=== PATIENT | female | born 1955 | race Caucasian/White ===

== ENCOUNTER → 2016-11-30 10:35 | Outpatient (CLI) | payer MEDICARE, OTHER ==
[2015-03-15 11:59] VITALS: BMI 41.7
[~2016-11-30 10:35] MED LIST: ADVAIR 100/501 DISK INH; ALDACTONE25 MG PO; AMBIEN10 MG PO; CLARITIN 10 MG10 MG PO; CYCLOBENZAPRINE10 MG PO; FLUTICASONE PRO16 GM NASAL; HCTZ25 MG PO; HYDROCODON-ACE1 EAC7 PO; LOPID600 MG PO; METOPROLOL TAR100 M1 PO; METOPROLOL TART50 MG PO; PSEUDO-GEST60 MG PO; SYNTHROID125 MCG PO
== END | disposition home or self-care (01) ==
LOC: D.MRI 10:35
DX: M54.12 Radiculopathy, cervical region (principal)

== ENCOUNTER 2016-12-25 10:56 | Emergency (ER) | payer MEDICARE, OTHER ==
[2015-03-15 11:59] VITALS: BMI 41.7
[2016-12-25 14:40] LABS: BASOPHILS 0.4 % (0.0-2.0); EOSINOPHILS 1.8 % (0-7); HEMATOCRIT 42.8 % (36.0-48.0); HEMOGLOBIN 14.7 g/dL (12-16); IMMATURE GRANULOCYTES 0.7 % (0-5); LYMPHOCYTES 29.7 % (15-50); MCH 32.4 pg (26.0-34.0); MCHC 34.3 g/dL (31.0-37.0); MCV 94.3 fL (80.0-100.0); MEAN PLATELET VOLUME 11.2 fL (7.4-10.4); MONOCYTES 6.6 % (2-11); NEUTROPHILS 60.8 % (40-80); PLATELET COUNT 222 10x3/uL (130-400); RBC 4.54 10x6/uL (4.00-5.40); RDW 13.7 % (11.5-14.5); WBC 7.3 10x3/uL (4.8-10.8)
[2016-12-25 14:58] LABS: ALKALINE PHOSPHATASE 134 U/L (46-116); CALC OSMOLALITY 278 mosm/kg (275-300); CALCIUM 8.7 mg/dL (8.5-10.1); CARBON DIOXIDE 19.4 mmol/L (21.0-32.0); CHLORIDE - SERUM 102 mmol/L (98-107); CREATININE - SERUM 0.8 mg/dL (0.6-1.3); GLUCOSE 126 mg/dL (74-106); POTASSIUM - SERUM 4.4 mmol/L (3.5-5.1); PROTEIN - SERUM 7.7 g/dL (6.4-8.2); SODIUM 139 mmol/L (136-145); UREA NITROGEN 10 mg/dL (7-18); eGFR NON AFRICAN AMERICAN 77 mL/min (90-120)
[2016-12-25 15:03] LABS: ALT (SGPT) 33 U/L (10-68); TROPONIN-I < 0.017 ng/mL (0.000-0.060)
== END 2016-12-25 16:01 | disposition home or self-care (01) ==
LOC: D.ER 10:56
PROVIDERS: Physician Assistant
DX: R06.02 Shortness of breath (principal); R07.81 Pleurodynia; I10 Essential (primary) hypertension; E78.5 Hyperlipidemia, unspecified; E03.9 Hypothyroidism, unspecified

== ENCOUNTER → 2017-04-04 10:52 | Outpatient (CLI) | payer MEDICARE, OTHER ==
[~2017-04-04] VITALS: Ht 170.2 cm; Wt 110.5 kg
--- NOTE | ~2017-04-04 | HP ---
PATIENT: MICHELLE RUST MEDICAL RECORD: [id number] ACCOUNT: [id number] LOCATION:NICK : 57 ADMISSION DATE: 04/04/17 HISTORY AND PHYSICAL EXAMINATION HISTORY OF PRESENT ILLNESS: She is a 61-year-old female with a history of cardiac arrhythmia as well as hypertension. Early atherosclerotic disease via remote angiography via Dr. Tapia. 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 She is being admitted for diagnostic angiography. PAST MEDICAL HISTORY: 1. History of cardiac arrhythmias. 2. Hypertension. 3. Hyperlipidemia. 4. Coronary artery disease as described above. ALLERGIES: Amoxicillin and Ultram. CURRENT MEDICATIONS: Ambien 5 milligrams at bedtime. Lopid 600 milligrams twice a day. Hydrochlorothiazide 25 milligrams every day. Propafenone 225 milligrams twice a day. Synthroid 25 micrograms every day. Metoprolol 100 milligrams every day. PHYSICAL EXAMINATION: GENERAL: This is a pleasant female in no acute distress. She appears stated age. HEAD, EYES, EARS, NOSE, AND THROAT: Normocephalic, atraumatic. NECK: No jugular venous distention or bruit. HEART: Regular. LUNGS: Lung zhang clear. ABDOMEN: Soft, nontender. PULSES: 2+ with no edema. IMPRESSION AND PLAN: Cardiolite stress testing shows reversibility in the anterior and lateral mid and apical regions. Plan for angiography with intervention based upon the above. ESEQUIEL TSANG MD CC: [id number] DICTATION DATE: 04/04/17 1000 CASH POSTING REPRESENTATIVE: DM 04/05/17 1031 DEP CLI 04/04/[address] [facility] [address] [place] [address]
--- NOTE | ~2017-04-04 | HEMODYNAMI ---
PATIENT:MICHELLE RUST MEDICAL RECORD: [id number] : 57 LOCATION:[facility] ADMISSION DATE: 04/04/17 Generatedon:04/04/201713:56 Patient name: MICHELLE RUST Patient #: [id number] SSN: : 1955 Date of study: 04/04/2017 Page: Of Hemodynamic Procedure Report Patient Data Patient Demographics Procedure consent was obtained First Name: MICHELLE Gender: Female Last Name: BARRERA : 1955 [facility] Initial: KAILASH Age: 61 year(s) Patient #: [id number] Race: Unknown Additional ID: [id number] Contact details [address]: [address] [place] [address] State: [place] City: [place] Zip code: [address] Past Medical History Allergies Allergen Reaction Date Comments Reported Other allergy 04/04/2017 MSG, Amoxicillin, Ultram Admission Admission Data Admission Date: 04/04/2017 Admission Time: 10:52 Lab Results Lab Result Date: 04/04/2017 Lab Result Time: 0:00 Biochemistry Name Units Result Min Max BUN mg/dl 12 --(-*--)-- 7 18 Creatinine mg/dl 1 --(--*-)-- 0.6 1.3 CBC Name Units Result Min Max Hemoglobin g/dl 13.9 --(*---)-- 13.5 17.5 Procedure Procedure Types Cath Procedure Diagnostic Procedure [facility] w/Coronaries PCI Procedure Coronary Stent Initial Miscellaneous Procedures Moderate Sedation up to 15 minutes Procedure Description Procedure Date Procedure Date: 04/04/2017 Procedure Start Time: 13:34 Procedure End Time: 13:54 Procedure Staff Name Function Cristobal Mason MD Performing Physician Micaela Sumner RT Scrub Sandrita Gomez RN Nurse Lavonne Lindsey RN Nurse Janeen Maravilla RT Monitor Procedure Data Cath Procedure Fluoroscopy Diagnostic fluoroscopy Total fluoroscopy Time: 4.8 time: 4.8 min min Diagnostic fluoroscopy Total fluoroscopy dose: 983 dose: 983 mGy mGy Contrast Material Contrast Material Type Amount (ml) Isovue 300 88 Entry Location Entry Primary Successful Side Size Upsize Upsize Entry Closure Muhammad ccessful Closure Location (Fr) 1 (Fr) 2 (Fr) Remarks Device Remarks Radial Right 6 Fr Mechanical TR band artery Short Compression Estimated blood loss: 10 ml Diagnostic catheters Device Type Used For End Catheter Placement Diagnostic Terumo 5Fr Procedure [place] 110cm catheter Diagnostic Infinity 5Fr Procedure AR MOD Catheter Procedure Complications No complications Procedure Medications Medication Administration Route Dosage Oxygen NC 3 l/min Lidocaine 2% added to field 20 Heparin Flush Bag added to field 2 bags (1000units/500ml NS) 0.9% NaCl I.V. 100 ml/hr Radial Cocktail added to field 1 syringe (Verapomil 2mg/Nitro 400mcg/Heparin 1500units) Zofran I.V. 4 mg Heparin Bolus I.V. 5000 units Integrilin (Bolus I.V. 10.2 ml 2mg/ml) Versed I.V. 1 mg Fentanyl I.V. 50 mcg Versed I.V. 1 mg Fentanyl I.V. 50 mcg Radial Cocktail I.A. 1 syringe (Verapomil 2mg/Nitro 400mcg/Heparin 1500units) Hemodynamics Rest HGB: 13.9 (g/dl) Heart Rate: 63 (bpm) Pressure Samples Time Site Value (mmHg) Purpose Heart Use Rate(bpm) 13:37 LV 137/22,38 Snapshot 58 13:38 AO 116/69(92) Pullback 70 13:38 LV 109/15,25 Pullback 70 Gradients Valve Time Site 1 Site 2 Mean SEP/DFP Peak To Heart Use (mmHg) (sec/min) Peak Rate (mmHg) (bpm) Aortic 13:38 LV AO 0 10 0 70 109/15,25 116/69(92) Calculations Valve P-P Mean Valve Index Valve Source Name Gradient Area Flow (cm2) Aortic 0 0 0 0 Snapshots Pre Cath Intra NCS Post Cath Vital Signs Time Heart Resp SPO2 NIBP Rhythm Pain Sedation Rate (ipm) (%) (mmHg) Status Level (bpm) 13:23:07 64 26 99 140/60(96) NSR 0 (11) 10(A) , No pain 13:27:27 62 23 100 141/65(98) NSR 0 (11) 10(A) , No pain 13:31:47 62 19 99 134/52(84) NSR 0 (11) 10(A) , No pain 13:36:07 64 24 100 128/61(90) NSR 0 (11) 10(A) , No pain 13:40:25 63 17 95 109/50(79) NSR 0 (11) 9(A) , No pain 13:44:37 61 18 97 111/52(91) NSR 0 (11) 9(A) , No pain 13:48:49 67 18 99 109/56(88) NSR 0 (11) 9(A) , No pain 13:52:59 64 20 98 109/60(86) NSR 0 (11) 10(A) , No pain Medications Time Medication Route Dose Verified Delivered Reason Notes Effectiveness by by 13:24:38 Oxygen NC 3 l/min Sandrita Sandrita used for Jason Jason product development director RN 13:24:46 Lidocaine 2% added 20ml Sandrita Sandrita used for to vial Jason Jason procedure field RN RN 13:24:55 Heparin Flush added 2 bags Sandrita Sandrita used for Bag to Jason Jason procedure (1000units/500ml field RN RN NS) 13:25:07 0.9% NaCl I.V. 100 Sandrita Sandrita used for ml/hr Jason Jason product development director RN 13:25:15 Radial Cocktail added 1 Sandrita Sandrita used for (Verapomil to syringe Jason Jason procedure 2mg/Nitro field RN RN 400mcg/Heparin 1500units) 13:30:11 Versed I.V. 1 mg Sandrita Sandrita for Jason Jason sedation RN RN 13:30:20 Fentanyl I.V. 50 mcg Sandrita Sandrita for Jason Jason sedation RN RN 13:34:28 Zofran I.V. 4 mg Sandrita Sandrita Per Jason Jason physician RN RN 13:35:03 Fentanyl I.V. 50 mcg Cristobal Sandrita for Sherrard Jason sedation MD OLSON 13:35:18 Radial Cocktail I.A. 1 Cristobal Jain used for (Verapomil syringe Isabella Sherrard procedure 2mg/Nitro MD COLVIN 400mcg/Heparin 1500units) 13:35:55 Versed I.V. 1 mg Cristobal Sandrita for Sherrard Jason sedation MD OLSON 13:45:00 Heparin Bolus I.V. 5000 Cristobal Sandrita Per verified units Sherrard Jason physician with dr. COLVIN RN patten 13:45:23 Integrilin I.V. 10.2ml Cristobal Remy Per (Bolus 2mg/ml) Isabella Jason physician MD OLSONmanager rfid Log Time Note 13:07:47 Janeen Maravilla RT(R) sent for patient. Start room use. 13:07:47 Time tracking: Regular hours 13:07:53 Plan of Care:Hemodynamics will remain stable., Cardiac rhythm will remain stable., Comfort level will be maintained., Respiratory function will remain adequate., Patient/ family verbilizes understanding of procedure., Procedure tolerated without complication., Recovers from procedure without complications.. 13:18:08 Patient received from Pre/Post Procedure Room to [facility] 2 Alert and oriented. Tansferred to table in Supine position. 13:18:10 Warm blankets applied, and elana hugger turned on for patient comfort. 13:18:10 Correct patient and procedure confirmed by team. 13:18:12 Signed procedure consent form obtained from patient. 13:18:13 ECG and BP/O2 sat monitors applied to patient. 13:18:14 Full Disclosure recording started 13:21:57 Vital chart was started 13:24:38 Oxygen 3 l/min NC was administered by Sandrita Gomez RN; used for procedure; 13:24:46 Lidocaine 2% 20ml vial added to field was administered by Sandrita Gomez RN; used for procedure; 13:24:55 Heparin Flush Bag (1000units/500ml NS) 2 bags added to field was administered by Sandrita Gomez RN; used for procedure; 13:25:07 0.9% NaCl 100 ml/hr I.V. was administered by Sandrita Gomez RN; used for procedure; 13:25:15 Radial Cocktail (Verapomil 2mg/Nitro 400mcg/Heparin 1500units) 1 syringe added to field was administered by Sandrita Gomez RN; used for procedure; 13:26:43 Baseline sample Acquired. 13:26:49 Rhythm: sinus rhythm 13:27:26 H&P Date Dictated: 04/03/2017 Within 30 days and on chart., H&P Addendum completed by physician on day of procedure. (MUST COMPLETE FOR ALL OUTPATIENTS). 13:27:27 Pre-procedure instructions explained to patient. 13:27:29 Family in waiting room. 13:27:30 Patient NPO since Midnight. 13:28:07 Patient allergic to Other allergyMSG, Amoxicillin, Ultram 13:28:13 Is patient on blood thinner?No 13:28:15 Patient diabetic? No. 13:28:19 Snore? Yes 13:28:21 Sleep apnea? No 13:28:35 Dentures? No ? 13:28:43 Patient pain scale 0/10 ?. 13:28:48 IV patent on arrival in left forearm with 0.9% NaCl at [facility]. 13:29:14 Lab Result : BUN 12 mg/dl 13:29:14 Lab Result : Creatinine 1 mg/dl 13:29:14 Lab Result : Hemoglobin 13.9 g/dl 13:29:34 Lab results completed and on chart. 13:29:43 Right Radial & Right Groin area was prepped with chlora-prep and draped in sterile fashion 13:29:47 Right Radial & Left Groin area was prepped with chlora-prep and draped in sterile fashion 13:29:49 Alarms reviewed by R. N. 13:29:50 Sharps counted by scrub and verified by R.N. 13:29:51 Physician paged 13:29:52 Physician arrived 13:29:57 --------ALL STOP TIME OUT------ 13:29:57 Final Timeout: patient, procedure, and site verified with staff and physician. All members of the team are in agreement. 13:30:01 Right Radial & Left Groin site verified by team. 13:30:11 Versed 1 mg I.V. was administered by Sandrita Gomez RN; for sedation; 13:30:11 Sedation plan: IV Moderate Sedation Versed, Fentanyl 13:30:20 Fentanyl 50 mcg I.V. was administered by Sandrita Gomez RN; for sedation; 13:30:25 Use device set Radial Dx 13:32:39 Procedure started. 13:34:28 Zofran 4 mg I.V. was administered by Sandrita Gomez RN; Per physician; 13:34:42 Local anesthetic to right radial artery with Lidocaine 2% by Cristobal Mason MD.INITIAL ACCESS ONLY 13:35:03 Fentanyl 50 mcg I.V. was administered by Sandrita Gomez RN; for sedation; 13:35:18 Radial Cocktail (Verapomil 2mg/Nitro 400mcg/Heparin 1500units) 1 syringe I.A. was administered by Cristobal Mason MD; used for procedure; 13:35:48 A 6 Fr Short sheath was inserted into the Right Radial artery 13:35:51 Acist Syringe opened to sterile field. 13:35:51 Medline Cath Pack opened to sterile field. 13:35:51 Bag Decanter opened to sterile field. 13:35:52 Terumo 6Fr Slender Glidesheath opened to sterile field. 13:35:52 St Joey 260cm J .035 wire opened to sterile field. 13:35:53 Acist Hand Control opened to sterile field. 13:35:54 Acist Manifold opened to sterile field. 13:35:55 Versed 1 mg I.V. was administered by Sandrita Gomez RN; for sedation; 13:36:05 Zero performed for pressure channel P1 13:36:12 Zero performed for pressure channel P1 13:36:36 A Diagnostic Terumo 5Fr [place] 110cm catheter was advanced over the wire and used for Procedure. 13:38:23 EF : 55 % 13:38:28 LCA angiography performed. 13:41:24 Catheter removed. 13:41:55 A Diagnostic Infinity 5Fr AR MOD Catheter was advanced over the wire and used for Procedure. 13:42:13 RCA angiography performed. 13:42:57 Catheter removed. 13:45:00 Heparin Bolus 5000 units I.V. was administered by Sandrita Gomez RN; Per physician; verified with dr. sanchez 13:45:15 Merit BasixCompak Inflation Kit opened to sterile field. 13:45:16 La Nevera [employer] Launcher 5Fr EBU 3.5 guide catheter opened to sterile field. 13:45:17 Draytek Technologies PT Graphix J 300cm 0.014 guide wire opened to sterile field. 13:45:23 Integrilin (Bolus 2mg/ml) 10.2ml I.V. was administered by Sandrita Gomez RN; Per physician; 13:45:32 6 Fr EBU guide catheter was inserted over the wire 13:45:51 PT Ajay wire advanced. 13:45:53 Wire advanced across lesion. 13:48:23 Inflation Number: 1 A Medtronic Integrity 3.5 X 12 stent was prepped and advanced across the Mid LAD. The stent was deployed at 12 ROBERTA for 0:32 (min:sec). 13:48:38 Stent catheter was removed intact over wire. 13:49:24 Sheath removed intact; hemostasis achieved with Mechanical Compression to the Right Radial artery. 13:49:33 Terumo TR Band Standard opened to sterile field. 13:49:37 Procedure ended.(Physican Out) 13:50:17 Fluoroscopy time 04.80 minutes. 13:50:24 Flurop Dose total: 983 13:50:24 Fluoroscopy dose: 983 mGy 13:50:35 Contrast amount:Isovue 300 88ml. 13:51:39 Sharps counted by scrub and verified by R.N. 13:51:45 TR band inflated with 10cc of air. 13:51:48 Insertion/operative site no bleeding no hematoma. 13:52:22 Post-procedure physical assessment completed. ASA score P 2 - A patient with mild systemic disease as per Cristobal Mason MD. 13:52:30 Post procedure rhythm: unchanged. 13:52:34 Estimated blood loss: 10 ml 13:52:37 Post procedure instruction explained to patient.Patient verbalizes understanding. 13:52:42 Patient needs reinforcement of post procedure teaching. 13:52:53 Procedure type changed to Cath procedure, Diagnostic procedure, LHC, LHC w/Coronaries, PCI procedure, Coronary Stent Initial, Miscellaneous Procedures, Moderate Sedation up to 15 minutes 13:52:54 Procedure and supply charges have been captured, reviewed, submitted and are correct. 13:54:11 Procedure Complication : No complications 13:54:13 Vital chart was stopped 13:54:14 See physician's report for complete and final results. 13:54:21 Report given to Pre/Post Procedure Room. 13:54:31 Patient transfered to Pre/Post Procedure Room with Stretcher. 13:54:34 Procedure ended. 13:54:34 Full Disclosure recording stopped 13:54:37 End room use (Document Last) 13:54:43 ACC-PCI Only Patient was given prescriptions, or instructed by Cristobal Mason MD to start/continue the following medications upon discharge: Plavix Intervention Summary Intervention Notes Time ActionType Lesion and Equipment Action# Pressure Duration Attributes Used 13:48:23 Place stent Mid LAD Medtronic 1 12 00:32 Integrity 3.5 X 12 stent Device Usage Item Name Manufacture Quantity Catalog Number Hospital Part Current Minim al Lot# / Charge Number Stock Stock Serial# Code Acist Acist 1 [id number] 254059 058447 20 Syringe Medical Systems Inc Medline Cardinal 1 [id number] 559155 35807 629346 5 Cath Pack Health Bag Microtek 1 2001S [id number] 65697 310257 5 Decanter Medical Inc. Terumo 6Fr Terumo 1 [id number] 097619 852688 490720 [address] Joey St Joey 1 [id number] 740112 155393 036545 30 260cm J .035 wire Acist Hand Acist 1 26900 378111 932932 814569 5 Control Medical Systems Inc Acist Acist 1 00232 084914 493355 583700 5 Manifold Medical Systems Inc Diagnostic Terumo 1 40-2683 891458 278790 932315 5 Terumo 5Fr [place] 110cm catheter Diagnostic Cardinal 1 [id number] 013753 529641 334973 15 Reframed.tv 5Fr AR MOD Catheter Merit Merit 1 [id number] 056449 704721 688638 15 BasixComilk Medical Inflation Kit Medtronic Medtronic 1 [id number] 752323 777621 095358 1 Launcher 5Fr EBU 3.5 guide catheter Vaughn Sci Vaughn 1 [id number] 462999 735769 646985 5 PT NanoNord J 300cm 0.014 guide wire Medtronic Medtronic 1 [id number] 242922 382580 9 [id number] Integrity 3.5 X 12 stent Terumo TR Terumo 1 [id number] 770905 968756 924350 40 Band Standard Signature Audit Starr Stage Time Signature Unsigned Intra-Procedure 04/04/2017 Janeen Maravilla 1:56:23 PM RT(R) Signatures Monitor : Janeen Maravilla Signature : RT Date : Time : [place] [address] [place] [address]
--- NOTE | ~2017-04-04 | OP ---
PATIENT NAME: MICHELLE RUST MEDICAL RECORD: [id number] :57 LOCATION:D.CAT ADMISSION DATE: SURGEON: ESEQUIEL TSANG MD OPERATION DATE: 04/04/17 PROCEDURES: Left heart catheterization. PROCEDURE IN DETAIL: After informed consent was obtained and after detailed explanation of risks, benefits, as well as alternative therapies, the patient elected to proceed with angiogram. The right radial area was prepped and draped in a normal sterile fashion. The right radial artery was cannulated via modified Seldinger technique with placement of 5-Chinese sheath, [place] catheter. All catheters exchanged through this sheath. The procedure was well-tolerated, and proceeded to PTCA stenting of the left anterior descending. FINDINGS: Left ventriculography was performed in standard 30 degree MCDERMOTT view, normal wall motion, normal systolic function. CORONARY ANATOMY: LEFT MAIN: The left main was free of disease. LEFT ANTERIOR DESCENDING: The left anterior descending in its mid portion has about an 80% discrete stenosis correlating nicely with the nuclear study. CIRCUMFLEX: The circumflex has a medium sized circumflex free of disease. RIGHT CORONARY ARTERY: Huge dominant right coronary artery free of disease. IMPRESSION: Significant disease of the left anterior descending artery correlating nicely with nuclear study. Intervention to this vessel momentarily. An EBU guided catheter was placed in the left coronary ostium. A PT ChoICE wire was placed across the tightly occluded left anterior descending down the distal vessel. This was followed by a 3.5 X 12 millimeter Integrity [id number] stent up to 12 and 14 atmospheres for 45 seconds. FINAL ANGIOGRAPHY: Shows excellent resolution of an 80% stenosis with no significant residual. HARVINDER flow was 3 throughout the procedure. Sheath was closed with TR band. Plavix was loaded in the lab. ESEQUIEL TSANG MD CC: [id number] DICTATION DATE: 04/04/17 1200 RESIDENTIAL REMODELING SUBCONTRACTOR: DM 04/05/17 1041 DEP CLI 04/04/17 [facility] [address] [place] [address]
[~2017-04-04 10:52] MED LIST changes: +PLAVIX75 MG PO; +PROPAFENONE HC225 MG PO
[2017-04-04 11:40] VITALS: BP 140/62; Ht 170.2 cm; Wt 110.5 kg
[2017-04-04 11:42] LABS: BASOPHILS 0.5 % (0-2); EOSINOPHILS 3.9 % (0-7); HEMATOCRIT 39.7 % (36.0-48.0); HEMOGLOBIN 13.9 g/dL (12-16); IMMATURE GRANULOCYTES 0.5 % (0-5); LYMPHOCYTES 32.5 % (15-50); MCH 33.3 pg (26.0-34.0); MEAN PLATELET VOLUME 10.1 fL (7.4-10.4); MONOCYTES 9.8 % (2-11); NEUTROPHILS 52.8 % (40-80); PLATELET COUNT 227 10x3/uL (130-400); RBC 4.18 10x6/uL (4.00-5.40); RDW 14.2 % (11.5-14.5); WBC 5.6 10x3/uL (4.8-10.8)
[2017-04-04 11:55] LABS: ANION GAP 25.2 mmol/L (8-16); CARBON DIOXIDE 15.3 mmol/L (21.0-32.0); POTASSIUM - SERUM 3.5 mmol/L (3.5-5.1)
--- NOTE | 2017-04-04 14:15 | NUR ---
TR BAND CDI TO RIGHT WRIST, C/O HEADACHE- DR TSANG NOTIFIED
--- NOTE | 2017-04-04 14:23 | NUR ---
NORCO 10MG/325 X 2 GIVEN PO, PT DENIES FURTHUR NEEDS. FAMILY AT SIDE
--- NOTE | 2017-04-04 17:45 | NUR ---
TR BAND OFF- BANDAID APPLIED, NO BLEEDING, IV D'C WITH CATH TIP INTACT, WRITTEN AND VERBAL INSTRUCTIONS GIVEN AND UNDERSTOOD. D'C HOME WITH
== END | disposition home or self-care (01) ==
LOC: D.CATH 10:52
PROVIDERS: Internal Medicine Interventional Cardiology
DX: I25.10 Atherosclerotic heart disease of native coronary artery without angina pectoris (principal); I10 Essential (primary) hypertension; E78.5 Hyperlipidemia, unspecified; R94.30 Abnormal result of cardiovascular function study, unspecified; Z01.812 Encounter for preprocedural laboratory examination

== ENCOUNTER → 2017-04-25 08:34 | Outpatient (CLI) | payer MEDICARE, OTHER ==
[2017-04-04 11:40] VITALS: BMI 38.1
== END | disposition home or self-care (01) ==
LOC: D.CT 08:34
DX: R10.9 Unspecified abdominal pain (principal); M54.9 Dorsalgia, unspecified

== ENCOUNTER → 2017-12-16 09:54 | Outpatient (CLI) | payer MEDICARE, OTHER ==
[2017-04-04 11:40] VITALS: BMI 38.1
== END | disposition home or self-care (01) ==
LOC: D.RT 09:54
DX: J45.909 Unspecified asthma, uncomplicated (principal)

== ENCOUNTER → 2019-01-30 10:05 | Outpatient (CLI) | payer MEDICARE, OTHER ==
[2017-04-04 11:40] VITALS: BMI 38.1
--- NOTE | ~2019-01-30 | EC ---
PATIENT:MICHELLE RUST DATE OF SERVICE: 01/30/19 SEX: F MEDICAL RECORD: [id number] DATE OF : 57 [facility]GE [facility]: 63 ADMISSION DATE: 01/30/19 REFERRING PHYSICIAN: INTERPRETING PHYSICIAN: ESEQUIEL TSANG MD ECHOCARDIOGRAM REPORT ECHO CHARGES 4 ECHO COMPLETE Date: 01/30/19 CLINICAL DIAGNOSIS: SALEH H/O CAD/HTN ECHOCARDIOGRAPHIC MEASUREMENTS (adult normal given) AC root (d.<3.7cm) 2.9 cm LV Septum d (<1.2 cm> 1.6 cm Valve Excursion 2.1 cm LV Septum (systole) 2.0 cm Left Atria (s.<4.0cm> 4.7 cm LVPW d(<1.2cm) 1.7 cm RV (d.<2.3cm) 2.7 cm LVPW (sytole) 2.1 cm LV diastole(<5.6CM) 5.1 cm MV E-F(>70mm/sec) cm LV systole 3.0 cm LVOT Diameter 1.9 cm MV exc.(>10mm) cm Est.ejection fraction (50-75%) % DOPPLER: LVIT cm/sec A 66.0 cm/sec E 75.0 cm/sec LA cm/sec RVSP 36.0 mmHg LVOT 145 cm/sec AOP1/2T m/s Asc. Ao 176 cm/sec RVOT 63.0 cm/sec RA cm/sec PA 97.0 cm/sec AV Gradient Peak 12.4 mmHg AV Mean 6.4 mmHg AV Area 2.5 cm MV Gradient Peak 3.1 mmHg MV Mean 1.2 mmHg MV Area cm COMMENTS: OP - HC Card Fixer: 1 GERMAN DANIEL Director Of Category Management: 3 Dr. Mason TAPE# PACS Pericardial Effusion N DATE OF SERVICE: Adequate 2D, color flow, spectral Doppler, and M-Mode. LVH is present. LV internal dimensions are normal. Wall motion is normal. EF is greater than or equal to 55%. Aortic valve is tricuspid. No evidence of stenosis by Doppler interrogation. Left atrium is dilated at 4.7 cm. Mitral valve shows no prolapse. Mild MR. Right-sided chambers grossly normal. Trace TR. TRANSINT:[id number] Voice Confirmation ID: [id number] DOCUMENT ID: [id number] ECHOCARDIOGRAM REPORT [id number] MICHELLE RUST GREGORY A MD CC: [id number] DICTATION DATE: 02/03/19 1313 NURSING INFORMATION SYSTEMS COORDINATOR: 02/03/19 1340 DEP CLI 01/30/19 [place] [id number] [place] [id number]
== END | disposition home or self-care (01) ==
LOC: D.HCCARDIO 10:00
PROVIDERS: ATTEND Internal Medicine Interventional Cardiology
DX: I25.10 Atherosclerotic heart disease of native coronary artery without angina pectoris (principal)

== ENCOUNTER → 2020-02-27 12:25 | Outpatient (CLI) | payer MEDICARE, OTHER ==
[2017-04-04 11:40] VITALS: BMI 38.1
== END | disposition home or self-care (01) ==
LOC: D.LABREF 12:25
PROVIDERS: ATTEND Internal Medicine Pulmonary Disease
DX: Z11.59 Encounter for screening for other viral diseases (principal)

== ENCOUNTER → 2020-02-29 14:25 | Outpatient (CLI) | payer MEDICARE, OTHER ==
[2017-04-04 11:40] VITALS: BMI 38.1
== END | disposition home or self-care (01) ==
LOC: D.RT 02-22 15:00 → D.CT 14:25 → D.RT 15:00
PROVIDERS: ATTEND Internal Medicine Pulmonary Disease
DX: J45.909 Unspecified asthma, uncomplicated (principal); R06.00 Dyspnea, unspecified